=== PATIENT | male | born 1985 | race American Indian/Alaskan Native ===

== ENCOUNTER 2017-11-12 14:17 | Emergency (ER) | payer SELFPAY ==
[2017-11-12 14:37] VITALS: BP 116/73
--- NOTE | 2017-11-12 16:44 | Emergency Department Report ---
ED Back Pain/Injury HPI - General Chief Complaint: Back Pain/Injury Stated Complaint: LOWER BACK PAIN Time Seen by Provider: 11/12/17 16:12 Source: patient Limitations: No Limitations - History of Present Illness Initial Comments: Patient is a 32-year-old black male who is past medical history of chronic back pain hasn't had pain for approximately 3 years who states that last night at work he started having some pain in his lower back. Patient states the pain is paraspinal. Patient denies any urinary frequency or incontinence or fecal incontinence or urinary retention. Patient denies any fever or trauma. Patient states that it hurts to move resting makes it better. MD Complaint: back pain - Related Data Previous Rx's Medication Instructions Recorded Last Taken Type Ibuprofen [Motrin] 600 mg PO Q8H PRN #20 tablet 11/12/17 Unknown Rx methOCARBAMOL [Robaxin TAB] 500 mg PO Q6H PRN #20 tablet 11/12/17 Unknown Rx traMADol [Ultram] 50 mg PO Q6HR PRN #10 tablet 11/12/17 Unknown Rx Allergies Allergy/AdvReac Type Severity Reaction Status Date / Time No Known Allergies Allergy Verified 11/12/17 14:32 ED Review of Systems ROS: Stated complaint: LOWER BACK PAIN Other details as noted in HPI Comment: All other systems reviewed and negative ED Back Pain Physical Exam - Exam General: Vital signs noted. No distress. Alert and acting appropriately. Patient's heart and lungs are within normal limits Skin exam no rash Back/Abdomen: Yes Perilumbar Tenderness, No Abdominal Tenderness, No Perithoracic Tenderness, No Sacroiliac Tenderness, No Flank Tenderness, No Straight Leg Raise Pain Neuro: Yes Normal Sensation, Yes Normal DTR's, Yes Normal Gait, No Motor Weakness ED Course Vital Signs 11/12/17 14:33 Temperature 98.4 F Pulse Rate 67 Respiratory 20 Rate Blood Pressure 116/73 O2 Sat by Pulse 99 Oximetry Critical care attestation.: If time is entered above; I have spent that time in minutes in the direct care of this critically ill patient, excluding procedure time. ED Disposition Clinical Impression: Lumbar strain Disposition: DC-01 TO HOME OR SELFCARE Is pt being admited?: No Does the pt Need Aspirin: No Condition: Stable Instructions: Muscle Strain (ED) Prescriptions: Ibuprofen [Motrin] 600 mg PO Q8H PRN #20 tablet PRN Reason: Pain methOCARBAMOL [Robaxin TAB] 500 mg PO Q6H PRN #20 tablet PRN Reason: Pain traMADol [Ultram] 50 mg PO Q6HR PRN #10 tablet PRN Reason: Pain Referrals: SAVANNA SAMANIEGO MD [Staff Physician] - 3-5 Days
== END 2017-11-12 16:57 | disposition home or self-care (01) ==
LOC: ED 14:17
DX: S39.012A Strain of muscle, fascia and tendon of lower back, initial encounter (principal); X58.XXXA Exposure to other specified factors, initial encounter; Y93.89 Activity, other specified; Y92.89 Other specified places as the place of occurrence of the external cause; Y99.8 Other external cause status
CPT/HCPCS: 99282

== ENCOUNTER 2018-01-12 08:09 | Emergency (ER) | payer OTHER ==
--- NOTE | 2018-01-12 08:56 | XRay Report ---
ROUTINE CHEST, TWO VIEWS: HISTORY: Shortness of breath. The trachea, heart, mediastinal contour, lung dorsey and bony thorax are unremarkable. IMPRESSION: Unremarkable chest x-ray.
[2018-01-12 08:59] LABS: Basophils % (Auto) 0.5 % (0.0-1.8); Eosinophils # (Auto) 0.1 K/mm3 (0.0-0.4); Eosinophils % (Auto) 1.2 % (0.0-4.3); Hematocrit 44.4 % (35.5-45.6); Lymphocytes # (Auto) 1.3 K/mm3 (1.2-5.4); Lymphocytes % (Auto) 24.7 % (13.4-35.0); Mean Corpuscular HGB Conc 34 % (32-34); Mean Corpuscular Hemoglobin 31 pg (28-32); Mean Corpuscular Volume 92 fl (84-94); Monocytes # (Auto) 0.7 K/mm3 (0.0-0.8); Monocytes % (Auto) 12.5 % (0.0-7.3); Platelet Count 224 K/mm3 (140-440); Red Blood Count 4.82 M/mm3 (3.65-5.03); Red Cell Distribution Width 14.2 % (13.2-15.2)
[2018-01-12 09:12] LABS: Blood Urea Nitrogen 15 mg/dL (9-20)
[2018-01-12 09:13] LABS: BUN/Creatinine Ratio 14; Calcium 9.4 mg/dL (8.4-10.2); Hemolysis Index 19
[2018-01-12 11:02] VITALS: BP 113/79
[2018-01-12] MEDS ORDERED: TORADOL IV ONE (11:26)
--- NOTE | 2018-01-12 11:56 | Emergency Department Report ---
HPI - General Chief Complaint: Chest Pain Time Seen by Provider: 01/12/18 10:42 - HPI HPI: The patient is a 32-year-old male presents for evaluation of chest pain. The patient reports left-sided chest pain for the past 1.5 weeks, exacerbated with movement of the left arm at the shoulder joint, sharp in quality, moderate severity, improved at rest. The patient denies trauma to the chest, fever, neck pain, parasthesias, dyspnea, cough, hemoptysis, palpitations, dizziness, syncope , unilateral leg swelling, calf muscle pain. Patient also denies cocaine or other stimulant use, history of DVT or PE, recent immobilization, or history of cancer. ED Past Medical Hx - Past Medical History Previous Medical History?: Yes Additional medical history: CHEST MUSCLE STRAIN - Surgical History Past Surgical History?: Yes Additional Surgical History: HERNIA - Social History Smoking Status: Current Every Day Smoker Substance Use Type: Alcohol, Prescribed - Medications Home Medications: Home Medications Medication Instructions Recorded Confirmed Last Taken Type Ibuprofen [Motrin] 600 mg PO Q8H PRN #20 tablet 11/12/17 Unknown Rx methOCARBAMOL [Robaxin TAB] 500 mg PO Q6H PRN #20 tablet 11/12/17 Unknown Rx traMADol [Ultram] 50 mg PO Q6HR PRN #10 tablet 11/12/17 Unknown Rx Cyclobenzaprine HCl [Flexeril 5 MG 5 mg PO Q8HR PRN #12 tab 01/12/18 Unknown Rx TAB] Ibuprofen [Motrin] 800 mg PO Q8HR PRN #15 tablet 01/12/18 Unknown Rx ED Review of Systems ROS: Stated complaint: CP Other details as noted in HPI Constitutional: denies: fever ENT: denies: throat or neck pain Respiratory: denies: cough, shortness of breath Cardiovascular: reports chest pain Endocrine: denies unexplained weight loss or gain Gastrointestinal: denies: abdominal pain, nausea Genitourinary: denies: dysuria Musculoskeletal: denies: leg swelling Skin: denies: rash Neurological: denies: headache Hematological/Lymphatic: denies: easy bleeding or easy bruising Psych: denies sadness or hopelessness Physical Exam - Physical Exam Vital Signs: Vital Signs 01/12/18 01/12/18 08:25 11:00 Temperature 98.2 F Pulse Rate 73 57 L Respiratory 18 16 Rate Blood Pressure 119/78 Blood Pressure 113/79 [Right] O2 Sat by Pulse 98 99 Oximetry Physical Exam: General: well-nourished, well-developed, no acute distress Head: Normocephalic, atraumatic Eyes: normal sclera ENT: Mucous membranes are pink and moist Neck: trachea midline, neck supple, No neck stiffness, no cervical adenopathy Respiratory: Breath sounds equal bilaterally, no wheezing, rales, or rhonchi Cardio: S1 and S2 present, no murmurs, rubs, gallops, capillary refill is brisk Abdomen: Normoactive bowel sounds, soft abdomen, no rigidity, no guarding or rebound tenderness Chest WALL/Back: tenderness to palpation of the chest wall at the left midaxillary line I see spaces 2 through for, no crepitus, swelling, warmth or fluctuance, pain is reproduced with internal rotation and adduction of the left arm at the shoulder joint, no CVA tenderness with percussion Musc: No pitting edema Skin: No rash Neuro: no facial drooping, normal speech Psych: Normal affect ED Course Vital Signs 01/12/18 01/12/18 08:25 11:00 Temperature 98.2 F Pulse Rate 73 57 L Respiratory 18 16 Rate Blood Pressure 119/78 Blood Pressure 113/79 [Right] O2 Sat by Pulse 98 99 Oximetry ED Medical Decision Making - Lab Data Result diagrams: 01/12/18 08:45 01/12/18 08:45 - Medical Decision Making The patient was seen and examined by myself. The patient is placed on a night monitor and continuous pulse ox. On initial evaluation, the patient was found to be in no distress. EKG was negative for findings suggestive of acute cardiac infarct. Labs and imaging are obtained. The patient given Toradol for his pain. Chest x-ray is negative for pneumothorax, focal consolidation, pulmonary vascular congestion, pleural effusion, or other obvious acute cardiopulmonary disease process. Lab results were non-concerning including levels of troponin, WBC, hemoglobin, hematocrit, electrolytes, renal function. The patient was reevaluated and reported that their symptoms were markedly improved. As the patient has a JERAD risk score less than 2, and a well's score less than 2, the patient is at low risk of ACS or pulmonary emboli etiology of their symptoms. The patient is stable for discharge with outpatient follow-up. The patient is given follow-up and return instructions. The patient expressed understanding and agreed with the plan. The patient is discharged in stable condition. Critical care attestation.: If time is entered above; I have spent that time in minutes in the direct care of this critically ill patient, excluding procedure time. ED Disposition Clinical Impression: Acute chest wall pain, Acute chest pain Disposition: TO HOME OR SELFCARE Is pt being admited?: No Does the pt Need Aspirin: No Condition: Stable Instructions: Chest Pain (ED), Costochondritis (ED) Prescriptions: Cyclobenzaprine HCl [Flexeril 5 MG TAB] 5 mg PO Q8HR PRN #12 tab PRN Reason: Pain Ibuprofen [Motrin] 800 mg PO Q8HR PRN #15 tablet PRN Reason: Pain Referrals: PRIMARY CARE, [Primary Care Provider] - 3-5 Days VALENTINA GALARZA MD [Staff Physician] - 3-5 Days Time of Disposition: 11:47
== END 2018-01-12 13:20 | disposition home or self-care (01) ==
LOC: ED 08:09
DX: R07.89 Other chest pain (principal); F17.200 Nicotine dependence, unspecified, uncomplicated
CPT/HCPCS: 36415; 71046; 80048; 84484; 85025; 93005; 93010; 99284

== ENCOUNTER 2018-02-24 06:20 | Emergency (ER) | payer OTHER ==
[2018-02-24 07:00] LABS: Basophils # (Auto) 0.1 K/mm3 (0.0-0.1); Basophils % (Auto) 1.1 % (0.0-1.8); Eosinophils # (Auto) 0.2 K/mm3 (0.0-0.4); Eosinophils % (Auto) 3.1 % (0.0-4.3); Hematocrit 42.6 % (35.5-45.6); Hemoglobin 14.2 gm/dl (11.8-15.2); Lymphocytes # (Auto) 2.2 K/mm3 (1.2-5.4); Lymphocytes % (Auto) 34.2 % (13.4-35.0); Mean Corpuscular HGB Conc 33 % (32-34); Mean Corpuscular Hemoglobin 31 pg (28-32); Mean Corpuscular Volume 93 fl (84-94); Monocytes # (Auto) 0.6 K/mm3 (0.0-0.8); Monocytes % (Auto) 8.7 % (0.0-7.3); Platelet Count 254 K/mm3 (140-440); Red Blood Count 4.59 M/mm3 (3.65-5.03); Red Cell Distribution Width 14.1 % (13.2-15.2)
[2018-02-24 07:18] LABS: Alanine Aminotransferase 13 units/L (7-56); Albumin 4.2 g/dL (3.9-5); BUN/Creatinine Ratio 14; Blood Urea Nitrogen 13 mg/dL (9-20); Calcium 9.6 mg/dL (8.4-10.2); Hemolysis Index 10
--- NOTE | 2018-02-24 09:21 | Emergency Department Report ---
HPI - General Chief Complaint: Weakness Time Seen by Provider: 02/24/18 09:08 - HPI HPI: 32-year-old male presents to the emergency department with complaint of a 2 week history of some generalized weakness, dry mouth, increased frequency of urination, intermittent blurry vision. Patient says that sometimes he will bend over while he is at work and when he stands back up straight he feels dizzy suddenly. He denies any headache, fever, chest pain, shortness of breath, slurred speech, motor deficits or any other neurological deficits. He denies any past medical history. He is a tobacco smoker but denies any illicit drug use. No recent travel or sick contacts at home. ED Past Medical Hx - Past Medical History Previous Medical History?: No Additional medical history: CHEST MUSCLE STRAIN - Surgical History Past Surgical History?: No Additional Surgical History: HERNIA - Social History Smoking Status: Current Every Day Smoker Substance Use Type: None - Medications Home Medications: Home Medications Medication Instructions Recorded Confirmed Last Taken Type Ibuprofen [Motrin] 600 mg PO Q8H PRN #20 tablet 11/12/17 Unknown Rx methOCARBAMOL [Robaxin TAB] 500 mg PO Q6H PRN #20 tablet 11/12/17 Unknown Rx traMADol [Ultram] 50 mg PO Q6HR PRN #10 tablet 11/12/17 Unknown Rx Cyclobenzaprine HCl [Flexeril 5 MG 5 mg PO Q8HR PRN #12 tab 01/12/18 Unknown Rx TAB] Ibuprofen [Motrin] 800 mg PO Q8HR PRN #15 tablet 01/12/18 Unknown Rx ED Review of Systems ROS: Stated complaint: BLURRY VISION Other details as noted in HPI Comment: All other systems reviewed and negative Constitutional: weakness. denies: chills, fever Eyes: vision change (intermittent blurry vision). denies: eye pain, eye discharge ENT: denies: ear pain, throat pain Respiratory: denies: cough, shortness of breath, wheezing Cardiovascular: denies: chest pain, palpitations Gastrointestinal: denies: abdominal pain, nausea, diarrhea Genitourinary: denies: urgency, dysuria Musculoskeletal: denies: back pain, joint swelling, arthralgia Skin: denies: rash, lesions Neurological: denies: headache, numbness Physical Exam - Physical Exam Vital Signs: Vital Signs 06/13/18 06:37 Temperature 98.1 F Pulse Rate 65 Respiratory 16 Rate Blood Pressure 106/67 O2 Sat by Pulse 98 Oximetry Physical Exam: GENERAL: The patient is well-developed well-nourished. HENT: Normocephalic. Atraumatic. Patient has moist mucous membranes. EYES: Extraocular motions are intact. Pupils equal reactive to light bilaterally. No nystagmus. Visual acuity: Both eyes 20/50, OD 20/70, OS 20/50. NECK: Supple. Trachea is midline. CHEST/LUNGS: Clear to auscultation. There is no respiratory distress noted. HEART/CARDIOVASCULAR: Regular. There is no tachycardia. There is no murmur. ABDOMEN: Abdomen is soft, nontender. Patient has normal bowel sounds. There is no abdominal distention. SKIN: Skin is warm and dry. NEURO: The patient is awake, alert, and oriented. The patient is cooperative. The patient has no focal neurologic deficits. The patient has normal speech and gait. Cranial nerves 2 through 12 grossly intact. No pronator drift. No dysmetria. MUSCULOSKELETAL: There is no tenderness or deformity. There is no limitation range of motion. There is no evidence of acute injury. ED Course Vital Signs 02/24/18 06:37 Temperature 98.1 F Pulse Rate 65 Respiratory 16 Rate Blood Pressure 106/67 O2 Sat by Pulse 98 Oximetry ED Medical Decision Making - Lab Data Result diagrams: 02/24/18 06:44 02/24/18 06:44 - EKG Data -: EKG Interpreted by [facility] EKG shows normal: sinus rhythm (sinus arrhythmia), axis, intervals, QRS complexes, ST-T waves Rate: bradycardia (54 bpm) - EKG Data When compared to previous EKG there are: previous EKG unavailable Interpretation: other (sinus arrhythmia with mild bradycardia at 54 bpm) - Medical Decision Making The patient had multiple complaints including some generalized weakness and fatigue, dry mouth, increased urinary frequency. He had also complained of some intermittent blurry vision but did not have any today or during presentation. He denies any headache, numbness or any other neurological deficits. On examination he has no focal, motor or sensory deficits and his cranial nerves are intact. Labs are unremarkable. Normal thyroid function. No urinary tract infection. And normal blood glucose level. His visual acuity was checked and it appears very poor. His poor acuity for each individual eye and for both eyes together and the patient will need follow-up with an machine cutter. Vital signs stable throughout his ED course. He appears safe for discharge home at this time and has been given multiple referrals for primary care. He was encouraged to return to the emergency Department with any worsening of his symptoms or any acute distress. - Differential Diagnosis diabetes, urinary tract infection, MS, hypothyroid Critical Care Time: No Critical care attestation.: If time is entered above; I have spent that time in minutes in the direct care of this critically ill patient, excluding procedure time. ED Disposition Clinical Impression: Dry mouth, Increased urinary frequency, Weakness generalized, Poor vision Disposition: DC- TO HOME OR SELFCARE Is pt being admited?: No Condition: Stable Instructions: Weakness (ED), Blurred Vision (ED) Additional Instructions: Please follow up with a primary care physician in the next few days. Return to the emergency Department with any worsening of your symptoms or any acute distress. Referrals: [facility] [Outside] - 3-5 Days [facility] [Outside] - 3-5 Days PRIMARY CAREMD [Primary Care Provider] - 3-5 Days THERON ROCK MD [Staff Physician] - 3-5 Days JJ OLIVO MD [Staff Physician] - 3-5 Days SATYA PEREZ MD [Staff Physician] - 3-5 Days Forms: Work/School Release Form(ED) Time of Disposition: 10:27
[2018-02-24 09:30] LABS: Amorphous Crystals,Urine Few; Bilirubin,Urine NEG (Negative); Blood,Urine NEG (Negative); Color,Urine Yellow (Yellow); Mucus,Urine 1+ /HPF; Protein,Urine <15 mg/dL mg/dL (Negative); Urobilinogen,Urine < 2.0 mg/dL (<2.0)
[2018-02-24 11:11] VITALS: BP 126/89
== END 2018-02-24 11:11 | disposition home or self-care (01) ==
LOC: ED 06:20
DX: R53.1 Weakness (principal); H54.3 Unqualified visual loss, both eyes; R35.0 Frequency of micturition; R68.2 Dry mouth, unspecified; F17.200 Nicotine dependence, unspecified, uncomplicated
CPT/HCPCS: 36415; 80053; 81001; 82962; 84443; 85025; 93005; 93010